=== PATIENT | female | born 1950 | race Caucasian/White ===

== ENCOUNTER 2016-07-30 11:22 | Outpatient (CLI) | payer OTHER ==
[2013-08-19 23:43] VITALS: BP 130/55
--- NOTE | 2016-07-30 21:44 | Diagnostic Imaging Report ---
IRINEO BUCK [facility] [address] [facility] [address] [place] [address]. [address] Report Submission Date: July 30, 2016 2:40:04 PM CDT Patient Study Name: HAZEL NEVILLE Date: July 30, 2016 11:29:31 AM CDT Modality Type: CR Gender: F Description: CHEST : 52 Institution: [facility] Physician: IRINEO BUCK - LYNDA Chest 2 views History: Cough and shortness of breath Findings: Obesity and low lung volumes are observed. Mild reticular opacity is present at each lung base. Heart size and pulmonary vascularity are normal. Osseous structures are intact. No pleural effusions are observed. Impression: Mild bibasilar reticular opacity. Differential includes atelectasis and bronchitis. Electronically signed on July 30, 2016 2:40:04 PM CDT by: Gaston GOOD
== END 2016-07-30 11:23 ==
LOC: RAD 11:22
PROVIDERS: ATTEND Family Medicine
DX: R05 Cough (principal)
CPT/HCPCS: 71020

== ENCOUNTER 2016-08-18 11:09 | Outpatient (CLI) | payer OTHER ==
[2013-08-19 23:43] VITALS: BP 130/55
[2016-08-18 11:49] LABS: eGFR (African) > 60; eGFR (Non-African) > 60
== END 2016-08-18 11:10 ==
LOC: LAB 11:09
PROVIDERS: ATTEND Family Medicine
DX: R05 Cough (principal)
CPT/HCPCS: 80048

== ENCOUNTER 2016-08-19 08:56 | Outpatient (CLI) | payer OTHER ==
[2013-08-19 23:43] VITALS: BP 130/55
--- NOTE | 2016-08-19 14:26 | Diagnostic Imaging Report ---
IRINEO BUCK [facility] [address] [facility] [address] [place], [place]. [address] Report Submission Date: Aug 19, 2016 10:40:29 AM CDT Patient Study Name: HAZEL NEVILLE Date: Aug 19, 2016 9:27:57 AM CDT Modality Type: CT\SR Gender: F Description: CT CHEST W/ CONTRAST : 52 Institution: [facility] Physician: IRINEO BUCK Computed tomography of the chest with contrast History: Persistent cough and abnormal lung sounds. Prior smoker. Findings: Transverse chest sections are obtained after 90 mL intravenous omnipaque 350. Mediastinal and visualized upper abdominal structures are normal post cholecystectomy. There is no evidence of mediastinal or hilar mass/ lymphadenopathy. Normal size mediastinal lymph nodes are present. Minimal bronchial wall thickening is present in both lower lobes without infiltrate, pleural effusion, or nodule. A tortuous right innominate artery exerts slight mass effect upon the right side the trachea. Impression: 1. Probably mild bilateral lower lobe bronchitis. 2. Tortuous right innominate artery exerts slight mass effect upon the trachea. 3. Cholecystectomy. Electronically signed on Aug 19, 2016 10:40:29 AM CDT by: Gaston GOOD
== END 2016-08-19 08:57 ==
LOC: RAD 08:56
PROVIDERS: ATTEND Family Medicine
DX: R05 Cough (principal); R09.89 Other specified symptoms and signs involving the circulatory and respiratory systems
CPT/HCPCS: 71260; Q9966

== ENCOUNTER 2016-11-05 16:06 | Outpatient (CLI) | payer MEDICARE, OTHER ==
[2013-08-19 23:43] VITALS: BP 130/55
== END 2016-11-05 16:08 ==
LOC: LABRHC 16:06
PROVIDERS: ATTEND Family Medicine
DX: R30.0 Dysuria (principal)
CPT/HCPCS: 87086

== ENCOUNTER 2017-06-09 16:27 | Outpatient (CLI) | payer MEDICARE, OTHER ==
[2013-08-19 23:43] VITALS: BP 130/55
== END 2017-06-09 16:30 ==
LOC: LABRHC 16:27
PROVIDERS: ATTEND Physician Assistant
DX: R30.0 Dysuria (principal)
CPT/HCPCS: 87086

== ENCOUNTER 2017-06-24 15:48 | Outpatient (CLI) | payer MEDICARE, OTHER ==
[2013-08-19 23:43] VITALS: BP 130/55
[2017-06-24 16:29] LABS: eGFR (African) > 60; eGFR (Non-African) > 60
== END 2017-06-24 15:50 ==
LOC: LAB 15:48
PROVIDERS: ATTEND Family Medicine
DX: Z51.81 Encounter for therapeutic drug level monitoring (principal)
CPT/HCPCS: 36415; 80048

== ENCOUNTER 2017-06-26 11:30 | Outpatient (CLI) | payer MEDICARE, OTHER ==
[2013-08-19 23:43] VITALS: BP 130/55
== END 2017-06-26 14:55 ==
LOC: LABRHC 11:30
PROVIDERS: ATTEND Physician Assistant
DX: R30.0 Dysuria (principal)
CPT/HCPCS: 87086; 87186

== ENCOUNTER 2017-10-22 12:28 | Outpatient (CLI) | payer MEDICARE, OTHER ==
[2013-08-19 23:43] VITALS: BP 130/55
--- NOTE | 2017-10-22 19:05 | Diagnostic Imaging Report ---
IRINEO BUCK [facility] [place] [facility] [address] [facility] [address] [address] Report Submission Date: Oct 22, 2017 2:09:49 PM CDT Patient Study Name: HAZEL NEVILLE Date: Oct 22, 2017 12:28:41 PM CDT Modality Type: DX Gender: F Description: SPINE : 52 Institution: [facility] [place] [facility] Physician: IRINEO BUCK Examination: Plain film lumbar spine History: L-SPINE, LOW BACK PAIN X3 WEEKS, NO KNOWN INJURY (Hx) Findings: 3 views of the lumbar spine demonstrate normal height. No anterior compression. Scattered osteophytes. Facet degenerative changes. Mild atherosclerotic disease involving the abdominal aorta. No other soft tissue abnormalities. Impression: Degenerative changes. No compression deformity. Electronically signed on Oct 22, 2017 2:09:49 PM CDT by: Akhil GOOD
== END 2017-10-22 12:30 ==
LOC: RAD 12:28
PROVIDERS: ATTEND Family Medicine
DX: M54.5 Low back pain (principal)
CPT/HCPCS: 72100

== ENCOUNTER 2017-10-27 15:05 | Outpatient (CLI) | payer MEDICARE, OTHER ==
[2013-08-19 23:43] VITALS: BP 130/55
--- NOTE | 2017-10-27 17:25 | Diagnostic Imaging Report ---
IRINEO BUCK [facility] [address] [facility] [address] [address] Report Submission Date: Oct 27, 2017 5:19:52 PM CDT Patient Study Name: HAZEL NEVILLE Date: Oct 27, 2017 3:06:07 PM CDT Modality Type: DX Gender: F Description: LOWER EXTREMITY : 52 Institution: [facility] Physician: IRINEO BUCK Examination: Plain film left knee History: INJURY AFTER FALL (Hx) Findings: 2 views of the left knee demonstrates diffuse osteopenia. Tibial spine, articular and patellar spurring. Joint space narrowing. No displaced fracture line. No joint effusion. Impression: Advanced articular degenerative changes. No evidence for fracture. Electronically signed on Oct 27, 2017 5:19:52 PM CDT by: Akhil GOOD
== END 2017-10-27 15:06 ==
LOC: RAD 15:05
PROVIDERS: ATTEND Family Medicine
DX: M25.562 Pain in left knee (principal)
CPT/HCPCS: 73560